=== PATIENT | female | born 1995 | race Caucasian/White ===

== ENCOUNTER 2024-10-25 17:13 | Emergency (ER) | payer SELFPAY ==
[~2024-10-25] VITALS: Ht 154.9 cm; Wt 64.0 kg
[2024-10-25 17:21] VITALS: BP 164/112; PULSE 86; RESP 18; TEMP 98.6; O2SAT 100; O2SAT 99
== END 2024-10-26 04:04 | disposition left against medical advice (07) ==
LOC: ER 17:13
DX: R42 Dizziness and giddiness (principal); F41.9 Anxiety disorder, unspecified; J40 Bronchitis, not specified as acute or chronic; Z53.21 Procedure and treatment not carried out due to patient leaving prior to being seen by health care provider